=== PATIENT | male | born 1995 | race Caucasian/White ===

== ENCOUNTER 2021-12-22 17:50 | Emergency (ER) | payer OTHER ==
[2021-12-22] MEDS ORDERED: PEPCID40 MG PO (18:32)
[2021-12-22] MEDS ORDERED: BENADRYL25 MG PO (18:32)
[2021-12-22] MEDS ORDERED: MEDROL DOSEPAK 24 MG PO (18:32)
== END 2021-12-22 18:59 | disposition home or self-care (01) ==
LOC: ER1 17:50
DX: L50.9 Urticaria, unspecified (principal)
CPT/HCPCS: 96372; 99282; J1100